=== PATIENT | female | born 1980 | race African-American/Black ===

== ENCOUNTER 2024-01-27 18:01 | Inpatient (IN) | payer OTHER, MEDICAID ==
[~2024-01-27] VITALS: Ht 170.2 cm; Wt 78.5 kg
[2024-01-27 19:00] LABS: BASOPHILS % 0.8 % (0.0-2.0); DIFFERENTIAL COMMENT 0; EOSINOPHILS % 1.5 % (0.0-5.0); HEMATOCRIT. 38.5 % (36.0-48.0); HEMOGLOBIN. 12.2 g/dL (12.0-16.0); LYMPHOCYTES % 47.3 % (20.0-50.0); MEAN CORPUSCULAR HEMOGLOBIN 23.3 pg (28.0-32.0); MEAN CORPUSCULAR HGB CONC 31.7 g/dL (31.0-37.0); MEAN CORPUSCULAR VOLUME 73.3 fL (81.0-99.0); MEAN PLATELET VOLUME 7.4 fl (7.4-10.4); MONOCYTES % 6.5 % (2.0-8.0); NEUTROPHILS % 43.9 % (40.0-76.0); PLATELET 467 x1000/uL (130-400); RED BLOOD CELL COUNT 5.26 mill/uL (4.2-5.4); WHITE BLOOD COUNT 7.9 x1000/uL (4.5-11.0)
[2024-01-27 19:04] LABS: CHLORIDE 106 mEq/L (98-107); POTASSIUM 3.6 mEq/L (3.5-5.1); SODIUM 136 mEq/L (136-145)
[2024-01-27 19:05] LABS: CARBON DIOXIDE 24 mEq/L (21-32)
[2024-01-27] MEDS: SODIUM CHLORIDE 0.9% 1,000 ML IV ONE (19:07)
[2024-01-27] MEDS: ASPIRIN 81MG TABLET PO ONE (19:08)
[2024-01-27 19:10] LABS: CREATININE 0.9 mg/dL (0.6-1.0); GLUCOSE 92 mg/dL (70-105); UREA NITROGEN BLOOD 11 mg/dL (9-23)
[2024-01-27 19:13] LABS: TROPONIN I HIGH SENSITIVITY < 4 ng/L (3.0-34)
[2024-01-27 19:19] LABS: D-DIMER 0.39 mg/L FEU (<0.50); PARTIAL THROMBOPLASTIN TIME 26.8 sec (23.4-31.0); PROTHROMBIN TIME 10.9 sec (9.6-11.0)
[2024-01-27 19:36] LABS: HCG SCREEN NEGATIVE
[2024-01-27 20:50] LABS: TROPONIN I HIGH SENSITIVITY < 4 ng/L (3.0-34)
[2024-01-27] MEDS ORDERED: ACETAMINOPHEN 325MG TABLET PO PRN (21:30)
[2024-01-27] MEDS ORDERED: ONDANSETRON HCL 4MG/2ML INJ IV PRN (21:30)
[2024-01-27] MEDS ORDERED: DIPHENHYDRAMINE 50MG/ML VIAL IV PRN (21:30)
[2024-01-27] MEDS ORDERED: CLONIDINE 0.1MG TABLET PO PRN (21:30)
[2024-01-28 01:45] VITALS: BP 138/78; PULSE 79; RESP 18; TEMP 35.8064
[2024-01-28] MEDS ORDERED: LISI-648 PO (01:50)
[2024-01-28 06:12] LABS: CARBON DIOXIDE 22 mEq/L (21-32); CHLORIDE 111 mEq/L (98-107); POTASSIUM 3.4 mEq/L (3.5-5.1); SODIUM 139 mEq/L (136-145)
[2024-01-28 06:13] LABS: CALCIUM 8.8 mg/dL (8.7-10.4)
[2024-01-28 06:18] LABS: CREATININE 0.9 mg/dL (0.6-1.0); GLUCOSE 114 mg/dL (70-105); UREA NITROGEN BLOOD 11 mg/dL (9-23)
[2024-01-28 06:19] LABS: THYROID STIMULATING HORMONE 0.94 uIU/mL (0.55-4.78)
[2024-01-28 06:25] LABS: BASOPHILS % 0.5 % (0.0-2.0); DIFFERENTIAL COMMENT 0; EOSINOPHILS % 1.5 % (0.0-5.0); HEMATOCRIT. 35.3 % (36.0-48.0); HEMOGLOBIN. 11.2 g/dL (12.0-16.0); LYMPHOCYTES % 52.6 % (20.0-50.0); MEAN CORPUSCULAR HEMOGLOBIN 23.2 pg (28.0-32.0); MEAN CORPUSCULAR HGB CONC 31.8 g/dL (31.0-37.0); MEAN CORPUSCULAR VOLUME 73.2 fL (81.0-99.0); MEAN PLATELET VOLUME 7.6 fl (7.4-10.4); MONOCYTES % 8.6 % (2.0-8.0); NEUTROPHILS % 36.8 % (40.0-76.0); PLATELET 399 x1000/uL (130-400); RED BLOOD CELL COUNT 4.82 mill/uL (4.2-5.4); RED CELL DISTRIBUTION WIDTH 17.3 % (11.6-14.6); WHITE BLOOD COUNT 7.8 x1000/uL (4.5-11.0)
[2024-01-28 08:00] VITALS: BP 127/79; PULSE 67; RESP 18; TEMP 36.72516; O2SAT 100
[2024-01-28] MEDS: IPRATROPIUM/ALBUTEROL 0.5-3(2.5)MG/3ML NEB HHN PRN (11:04)
[2024-01-28 11:07] VITALS: PULSE 73; RESP 18; O2SAT 98
[2024-01-28 12:00] VITALS: BP 119/73; PULSE 78; RESP 18; TEMP 36.114; O2SAT 96
[2024-01-28] MEDS: METOPROLOL SUCCINATE 50MG ER TABLET PO SCH (12:28)
[2024-01-28 16:00] VITALS: BP 122/80; PULSE 67; RESP 18; TEMP 36.6696; O2SAT 98
[2024-01-28 17:57] LABS: *AMPHETAMINES SCREEN URINE NEGATIVE (NEGATIVE); *BARBITURATES SCREEN URINE NEGATIVE (NEGATIVE); *BENZODIAZEPINES SCREEN URINE NEGATIVE (NEGATIVE); *COCAINE SCREEN URINE NEGATIVE (NEGATIVE)
[2024-01-28 17:58] LABS: CANNABINOID URINE SCREEN NEGATIVE (NEGATIVE); ECSTASY MDMA SCREEN URINE NEGATIVE (NEGATIVE); METHADONE URINE SCREEN NEGATIVE (NEGATIVE); OPIATES URINE SCREEN NEGATIVE (NEGATIVE); PHENCYCLIDINE URINE SCREEN NEGATIVE (NEGATIVE)
[2024-01-28 20:00] VITALS: BP 114/76; PULSE 89; RESP 18; TEMP 36.55848; O2SAT 98
[2024-01-28] MEDS: POTASSIUM CHLORIDE 20MEQ TABLET SR PO NR (23:32)
[2024-01-29 01:12] VITALS: BP 119/74; PULSE 68; RESP 18; TEMP 36.44736; O2SAT 99
[2024-01-29 04:00] VITALS: BP 114/60; PULSE 69; RESP 16; TEMP 36.28068; O2SAT 97
[2024-01-29 08:00] VITALS: BP 120/76; PULSE 66; RESP 18; TEMP 36.61404
[2024-01-29 12:00] VITALS: BP 127/84; PULSE 74; RESP 18; TEMP 36.72516; O2SAT 99
[2024-01-29] MEDS ORDERED: ASPI-1160 PO (15:40)
[2024-01-29] MEDS ORDERED: LIP40 PO (15:40)
[2024-01-29 16:00] VITALS: BP 130/84; PULSE 61; RESP 20; TEMP 36.72516; O2SAT 99
[2024-01-29 16:44] VITALS: BP 130/84; PULSE 61; TEMP 98.1; O2SAT 99
[2024-01-29] MEDS ORDERED: ATORVASTATIN CALCIUM 40MG TABLET PO SCH (21:00)
[2024-01-30] MEDS ORDERED: ASPIRIN 81MG TABLET PO SCH (09:00)
== END 2024-01-29 18:27 | disposition short-term general hospital (02) | DRG 313 ==
LOC: ER 18:01 → 8WST 20:32 → EDBEDREQTM 20:38 → EDBEDREQ 20:38
PROVIDERS: ADMIT Internal Medicine; ATTEND Internal Medicine
DX: R07.89 Other chest pain (principal); J96.00 Acute respiratory failure, unspecified whether with hypoxia or hypercapnia; I20.0 Unstable angina; J44.9 Chronic obstructive pulmonary disease, unspecified; I10 Essential (primary) hypertension; Z87.891 Personal history of nicotine dependence
CPT/HCPCS: 36415; 71045; 80048; 80305; 83880; 84443; 84484; 84703; 85025; 85379; 93005; 93970; 94640; 99285; J7030